=== PATIENT | female | born 1975 | race Caucasian/White ===

== ENCOUNTER 2018-12-01 06:01 | Emergency (ER) | payer BC ==
[~2018-12-01] VITALS: Ht 167.6 cm; Wt 83.5 kg
[~2018-12-01 06:01] MED LIST: ADVIL LIQUI-GE200 MG; FLEXERIL PO; FLOMAX0.4 MG PO; FLONASE 0.05%50 MCG NASAL; LEVORA-281 EACH PO; LO LOESTRIN FE1 EACH PO; MEDROLDOSEPACK PO; MUCINEX600 MG PO; NORCO 5-325 TA1 EACH PO; PERCOCET 5-3251 EACH PO; PREDNISONE 20 M20 MG PO; RELAFEN500 MG PO; TRIAMCINOLONE A80 G2 TOP; VICODIN 5-5001 EACH PO; ZOFRAN ODT4 MG PO; [UNRECOGNIZED DRUG - OTHER]
[2018-12-01] MEDS ORDERED: PROTONIX40 MG PO (07:29)
[2018-12-01 07:47] VITALS: BP 97/57
--- NOTE | 2018-12-01 10:41 | EKG ---
[address] [address] ELECTROCARDIOGRAM REPORT Name: RAJANI MUNROE AMELIA Room [facility]: [facility] [id number] Admission: 12/01/18 Attend Phys: Discharge: 12/01/18 Date of : 73 Report #: [id number] THIS REPORT FOR: //name// [facility] ED Test Date: 2018-12-01 Test Time: 06:31:20 Pat Name: RAJANI MUNROE Department: Room: Gender: F [employer]qu[employer]: VANGIE : 1975 Requested By: Brandon Kelly Order Number: [id number] MD: Gabriel Foreman Measurements Intervals [place] Rate: 81 P: 51 MI: 145 QRS: 47 QRSD: 79 T: 49 QT: 407 QTc: 473 Interpretive Statements Sinus rhythm No previous ECG available for comparison Electronically Signed On 12-01-2018 10:40:57 CDT by Gabriel Foreman [email or web address] <ELECTRONICALLY SIGNED> By: Gabriel Foreman MD 12/01/18 1040 0631 0631 Gabriel Foreman MD /[email or web address]
== END 2018-12-01 08:05 | disposition home or self-care (01) ==
LOC: ER 06:01
DX: R07.89 Other chest pain (principal); Z87.442 Personal history of urinary calculi; Z98.890 Other specified postprocedural states